=== PATIENT | male | born 1995 | race African-American/Black ===

== ENCOUNTER 2018-10-02 23:54 | Emergency (ER) | payer OTHER ==
[~2018-10-02] VITALS: Ht 180.3 cm; Wt 99.8 kg
[2018-10-02 23:55] VITALS: BP 148/101
--- NOTE | 2018-10-03 00:20 | NUR ---
Patient discharged with v/s stable. Written and verbal after care instructions given and explained. Patient verbalized understanding. Police with in custody. All questions addressed prior to discharge. Advised to follow up with PMD.
== END 2018-10-03 00:20 | disposition home or self-care (01) ==
LOC: MED 23:54
DX: F10.129 Alcohol abuse with intoxication, unspecified (principal); Z02.89 Encounter for other administrative examinations; V89.2XXA Person injured in unspecified motor-vehicle accident, traffic, initial encounter; Y93.89 Activity, other specified; Y92.89 Other specified places as the place of occurrence of the external cause; Y99.8 Other external cause status
CPT/HCPCS: 99283